=== PATIENT | male | born 1945 | race Caucasian/White ===

== ENCOUNTER 2023-02-16 10:04 | Day surgery (SDC) | payer MEDICARE, BC, SELFPAY ==
[2023-02-16] MEDS: Tropicam./Phenyleph. (1/2.5%) 5 ML BTL OS ×3 (11:08→11:25)
[2023-02-16 11:09] VITALS: BP 133/79; PULSE 75; RESP 18; TEMP 36.5; O2SAT 97
--- NOTE | 2023-02-16 11:28 | W.ANESPRE ---
General Info Date of Service Date Performed: 02/16/23 Height: 6 ft 1 in Weight: 114.1 kg Body Mass Index (BMI): 33.2 Surgical Procedure: Operation Date: 02/16/23 13:40 Proposed Procedure Side Surgeon p Cataract Extraction with IOL Implant Left Russell Bryant MD Meds Allergies and Home Medications Allergies Allergy/AdvReac Type Severity Reaction Status Date / Time canagliflozin [From Invokana] Allergy Unknown Verified 02/16/23 11:03 pioglitazone [From Actos] Allergy Unknown Verified 02/16/23 11:03 Iodine and Iodide Containing AdvReac Severe Loss of Unverified 02/16/23 11:03 Produc consciousness liraglutide [From Victoza] AdvReac Intermediate Vertigo Unverified 02/16/23 11:03 Home Medication Medication Instructions Recorded amoxicillin 500 mg capsule 2,000 mg PO PRN PRN Prior to 05/19/15 dental exams atorvastatin 80 mg tablet (Lipitor) 80 mg PO DAILY 05/19/15 diltiazem HCl 180 mg 180 mg PO DAILY 05/19/15 capsule,extended release 24 hr (Cartia XT) ibuprofen 800 mg tablet 800 mg PO PRN PRN 05/19/15 insulin aspart U-100 100 unit/mL 10 unit subcut BID 05/19/15 (3 mL) subcutaneous pen (Novolog FlexPen U-100 Insulin aspart) insulin glargine 100 unit/mL (3 15 unit subcut BID weight gain or 05/19/15 mL) subcutaneous pen (Lantus consumption Solostar U-100 Insulin) insulin glargine 100 unit/mL (3 45 unit SQ HS 05/19/15 mL) subcutaneous pen (Lantus Solostar U-100 Insulin) nitroglycerin 0.4 mg sublingual 0.4 mg sublingual PRN 05/19/15 tablet (Nitrostat) omega-3 fatty acids-fish oil 340 1 ea PO DAILY 05/19/15 mg-1,000 mg capsule (Fish Oil) saw palmetto 450 mg capsule 450 mg PO DAILY 05/19/15 thiamine HCl (vitamin B1) 100 mg 100 mg PO DAILY 05/19/15 tablet (Vitamin B-1) cholecalciferol (vitamin D3) 25 1,000 unit PO DAILY 02/13/23 mcg (1,000 unit) capsule (Vitamin D3) clopidogrel 75 mg tablet 37.5 mg PO DAILY 02/13/23 famotidine 20 mg tablet 20 mg PO HS 02/13/23 losartan 50 mg tablet 50 mg PO DAILY 02/13/23 mecobalamin (vitamin B12) 1,000 1,000 mcg sublingual DAILY 02/13/23 mcg disintegrating tablet,sublingual metformin 500 mg tablet,extended 500 mg PO BID 02/13/23 release 24 hr semaglutide 1 mg/dose (4 mg/3 mL) 1 mg subcut DIRECTED 02/13/23 subcutaneous pen injector (Ozempic) simvastatin 40 mg tablet 40 mg PO DAILY 02/13/23 [id number]-min 1 tab PO DAILY 02/13/23 3,300 unit-5 mg-200mg-75 unit tablet ER (ICaps) tadalafil 10 mg tablet mg 02/16/23 Current Visit Medications: Current Medications Generic Name Dose Route Start Last Admin Trade Name Freq PRN Reason Stop Dose Admin Acetaminophen 1,000 mg 02/16/23 06:00 Acetaminophen 500 Mg Tab PO 03/18/23 05:59 Q4H PRN PRN Balanced Salt Solution 500 ml 02/16/23 06:00 Balanced Salt Soln.-Plus 500 Ml Bag OP 03/18/23 05:59 DIRECTED RALF Miscellaneous Medication 0 ml 02/16/23 06:00 Prednisolone 1%, Moxifloxacin 0.5%, Nepafenac 0.1% 5ml Btl OS 03/18/23 05:59 DIRECTED RALF Miscellaneous Medication 0 ml 02/16/23 06:00 02/16/23 11:25 Tropicam./Phenyleph. 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 stated he had a full work up and was discharged from their care per pt. Transient cerebral ischemia Rupture of rotator cuff of shoulder right and left shoulder Proliferative diabetic retinopathy associated with diabetes mellitus due to underlying condition Morbid obesity Memory loss Surgical History Surgical History H/O arthroplasty H/O vasectomy H/O laminectomy History of total hip replacement S/P debridement wound debridement H/O hernia repair History of skin graft Hx of cystoscopy with stent placement and removal H/O vitrectomy Hx of cataract surgery removal of secondary membranous cataract w/ iridectomy Previous back surgery History of colonoscopy Tobacco Smoking/Tobacco Use Status: Never Alcohol Alcohol Intake: never Substance Use Substance use: Never Substance use type: does not use Vital Signs and Lab Results Vital Signs Most Recent Vital Signs in EMR: Most Recent Vital Signs Temp Pulse Resp BP Pulse Ox 36.5 C 75 18 133/79 97 02/16/23 11:09 02/16/23 11:09 02/16/23 11:09 02/16/23 11:09 02/16/23 11:09 Lab Results Blood Type / Crossmatch: No Data to Display Complete Blood Count: No Data to Display Complete Metabolic Panel: No Data to Display Liver Function Panel: No Data to Display Coagulation Panel: No Data to Display Cardiac Panel: No Data to Display Arterial Blood Gas: No Data to Display Venous Blood Gas: No Data to Display Pancreas Panel: No Data to Display Thyroid Panel: No Data to Display Infectious Disease: No Data to Display Blood Cultures: No Data to Display Toxicology Panel: No Data to Display Anesthesia Assessment and Plan Anesthesia History Personal History: No History of Anesthesia Complications Family History: No Family History of Anesthesia Complications Exercise Tolerance Exercise Tolerance: Metabolic Equivalents>4 Pertinent Negatives Pertinent Negatives: No Symptoms of GERD, No Major Cardiovascular Symptoms or Complaints and No Major Pulmonary Symptoms or Complaints Cardiac & Pulmonary Exam Cardiac Exam: Normal S1/S2 Heart Sounds Pulmonary Exam: Clear Bilateral Breath Sounds Implantable Cardiac Device Does patient have a Pacemaker or an ICD?: No Airway Exam Known Difficult Airway: No Mallampati Class: 1 Mouth Opening: Normal (> 3cm) Thyromental Distance: Greater than 3 cm Neck Range of Motion: Full ROM Neck Circumference: Normal Teeth Condition: Removable Dentures/Plates Upper ASA Classification ASA Score: ASA 3 Emergency Case?: No NPO Status NPO Status: NPO Clears >2 hours, Solids >8 hours Anesthesia Plan Resuscitation Status: Full Code Anesthesia Technique: MAC Anesthesia Airway Planned: Natural Airway Monitors Used: Standard Monitors
[2023-02-16 11:29] VITALS: BMI 33.2
[2023-02-16] MEDS: Balanced Salt Soln.-PLUS 500 ML BAG OP (12:27)
[2023-02-16] MEDS: Duovisc Viscoelastic System EACH 1 EACH (12:29)
[2023-02-16] MEDS: Tetracaine 0.5% 4 ML BTL OS (12:29)
[2023-02-16] MEDS: Lidocaine 1% Pres-Free 5 ML VIAL (12:30)
[2023-02-16] MEDS: Phenylephrine/Lidocaine (15/10) MG/ML 1 ML VIAL (12:32)
[2023-02-16] MEDS: Povidone-Iodine Ophth 30 ML BTL (12:33)
[2023-02-16] MEDS: Triamcinolone 40 MG/ML VIAL (12:34)
--- NOTE | 2023-02-16 12:49 | W.PM.DSUDISC ---
Date of service: 02/16/23 Time of Service: 12:49 Discharge Plan Disposition Patient Disposition: Home Discharge Details Attending Provider: Russell Bryant Primary Care Provider: Ugo Caldwell Home Meds and New Rx's Prescriptions: No Action amoxicillin 500 MG capsule 2,000 mg PO PRN PRN (Reason: Prior to dental exams) atorvastatin [Lipitor] 80 MG tablet 80 mg PO DAILY ibuprofen 800 MG tablet 800 mg PO PRN PRN diltiazem HCl [Cartia XT] 180 MG capsule,extended release 24hr 180 mg PO DAILY thiamine HCl (vitamin B1) [Vitamin B-1] 100 MG tablet 100 mg PO DAILY nitroglycerin [Nitrostat] 0.4 MG tablet, sublingual 0.4 mg Sublingual PRN insulin aspart U-100 [Novolog FlexPen U-100 Insulin] 100 UNIT/ML insulin pen 10 unit subcut BID saw palmetto 450 MG capsule 450 mg PO DAILY Fish Oil 1 EACH capsule 1 ea PO DAILY insulin glargine [Lantus Solostar U-100 Insulin] 300 UNITS/3 ML insulin pen 15 unit Sub-Q BID insulin glargine [Lantus Solostar U-100 Insulin] 100 UNIT/ML insulin pen 45 unit SQ HS simvastatin 40 mg tablet 40 mg PO DAILY clopidogrel 75 mg tablet 37.5 mg PO DAILY famotidine 20 mg tablet 20 mg PO HS ICaps [id number] vumj-kg-[id number]-unit tablet extended release 1 tab PO DAILY Ozempic 1 mg/dose (4 mg/3 mL) pen injector 1 mg SUBCUT DIRECTED Rx Instructions: 1 mg subcutaneously; metformin 500 mg tablet extended release 24 hr 500 mg PO BID losartan 50 mg tablet 50 mg PO DAILY mecobalamin (vitamin B12) 1,000 mcg tablet,disintegrating 1,000 mcg sublingual DAILY Rx Instructions: place tablet under tongue and allow to dissolve for at least30 secs before swallowing cholecalciferol (vitamin D3) [Vitamin D3] 25 mcg (1,000 unit) capsule 1,000 unit PO DAILY tadalafil 10 mg tablet Patient Comments: take 1 tablet by mouth daily (1 HOUR BEFORE SEXUAL ACTIVITY) Discharge Instructions Stand Alone Forms: Post-op Topical Cataract, Press Ganey (DSU) Discharge Orders Discharge Orders: Discharge Order (Routine); Ordered 02/16/23 Ordered By: Russell J Annette DS: Diagnosis Discharge Diagnosis (1) Cortical age-related cataract, left eye: Status: Resolved (2) Nuclear age-related cataract, left eye: Status: Resolved
[2023-02-16 12:50] VITALS: BP 127/76; PULSE 75; RESP 18; TEMP 36.5; O2SAT 96
--- NOTE | 2023-02-16 12:50 | W.PM.OP ---
Date of service: 02/16/23 Time of Service: 12:50 Operative Note Operative Note DATE OF PROCEDURE: 02/16/23 PRE-OP DIAGNOSIS: Dense nuclear/cortical cataract, left eye POST-OP DIAGNOSIS: same Severe diffuse zonular laxity, left eye PROCEDURE: Cataract extraction using phacoemulsification with intraocular lens implant, left eye SURGEON: Russell Bryant ANESTHESIA TYPE: Local By Surgeon and MAC Refer to Anesthesia Record PATHOLOGY: none sent COMPLICATIONS: None Patient was transported to: same day Patient's condition: stable Implants: Bj Clareon [id number] Indications: Progressive decreased vision due to cataract, left eye Procedure Description: CATARACT SURGERY OPERATIVE REPORT PREOPERATIVE DIAGNOSIS: Dense nuclear/cortical cataract, left eye POSTOPERATIVE DIAGNOSIS: Same, and severe diffuse zonular laxity, left eye OPERATION: Cataract extraction using phacoemulsification with posterior chamber intraocular lens implant, left eye. Implantation of capsular tension ring, left eye IOL: IOL Manufacturing Executive/Model: Bj Clareon [id number] IOL Power: + 22.0 diopters IOL Serial Number: [id number] Optic Diameter: 6.0mm Haptic/Overall Diameter: 13.0mm PHACO INFO: Bj Digidentityurion Vision System with OZil and Active Fluidics Cumulative Dispersed Energy (CDE): 28.07 seconds SURGEON: Russell Bryant MD, HARSHAD ANESTHESIA: Monitored Anesthesia Care (MAC), with local sub-tenon's anesthetic infiltration COMPLICATIONS: None SPECIMENS: None INDICATIONS FOR PROCEDURE: The patient is a 77-year-old male with history of diabetes who has previously undergone cataract surgery in the right eye, as well as pars plana vitrectomy and endolaser panretinal laser photocoagulation. He has developed a dense nuclear/cortical cataract in the left eye and desires cataract surgery and attempt to improve and maximize his vision there. See office notes for detailed information. PROCEDURE: The correct surgical eye was identified and marked as the left eye and the pupil was dilated in the preoperative area using mydriatics and cycloplegics. The dilated pupil size was 6.0 mm. The patient elected to proceed without oral sedation. The patient was brought to the operating room where cardiopulmonary monitoring was instituted and surgical time-out was performed, confirming the correct operative eye and IOL power. Topical anesthesia was administered and ophthalmic povidone-iodine 5% was instilled into the conjunctival fornices. The sebastian-ocular area was prepped with Betadine 10% solution and draped in the usual sterile fashion for intraocular surgery, including an aperture drape. A Tegaderm transparent film dressing was cut in half and used to cover the lashes and lid margins. Care was taken to sequester the lashes and lid margins under the Tegaderm dressing. A lid speculum was placed between the lids of the operative eye and the Bj LuxOR Revalia operating microscope was maneuvered into position. Flavio scissors were then used to make a conjunctival buttonhole approximately 6mm posterior to the limbus in the inferonasal quadrant. Blunt dissection was carried out to expose bare sclera, and a blunt-tipped sub-tenon?s anesthesia cannula was introduced and passed posteriorly along the globe where non-preserved plain lidocaine was injected into posterior sub-Tenon?s space. A sideport knife was used to make a paracentesis port. Intraocular phenylephrine/lidocaine was injected into the anterior chamber. The anterior chamber was then filled with viscoelastic. A keratome knife was used construct a two-plane clear corneal tunnel extending 2.0mm into clear cornea. A flap was raised on the anterior capsule and capsulorhexis forceps were used to complete a continuous curvilinear capsulorhexis of 5.0 mm. Balanced salt solution was then used to perform cortical cleaving hydrodissection and nuclear hydrodelineation until the lens could be freely rotated within the capsular bag. The lens nucleus was then disassembled and removed within the capsular bag and iris plane using phacoemulsification. The lens was noted to be quite dense. A deep central trench was sculpted in the nucleus, which was then rotated 180 degrees and the trench extended. A bimanual technique was then used to crack the nucleus into 2 halves. Each Todd nucleus was then subtyped into multiple smaller fragments under abundant dispersive viscoelastic protection. Residual cortical material was removed using the irrigation/aspiration handpiece. The posterior capsule was carefully polished to remove as much residual lens epithelial cells as safely possible. Significant generalized zonular laxity was noted as well as a very floppy capsular bag. The capsular bag was then inflated and the anterior chamber deepened with viscoelastic. A Morcher Type 15 capsular tension ring was then inserted into the capsular bag without difficulty. The lens implant described above was inserted into the capsular bag using the Bj Autonome Injector. A Kuglen hook was used to dial the IOL into position. Residual viscoelastic was then removed first from posterior to the IOL, then from the anterior chamber using the I/A handpiece. The lens implant was noted to center nicely within the capsular bag. The incisions were stromally hydrated, and the anterior chamber was reformed using BSS. Then 0.5cc of moxifloxacin 1.0mg/ml were injected into the capsular bag and anterior chamber. The incisions were checked with a Weck spear and found to be secure. At the conclusion of the procedure, triamcinolone 20 mg and 0.5 cc were injected into posterior sub-tenon's space using the sub-tenon's anesthesia injection cannula. Several drops of ophthalmic povidone-iodine 5% were then applied to the eye followed by two drops of Imprimis combination prednisolone/moxifloxacin/nepafenac solution. The drapes were removed and a clear plastic protective eye shield was placed over the eye. The patient was then returned to [facility] Day Surgery in stable condition.
--- NOTE | 2023-02-16 13:32 | W.ANESPOSTOP ---
Postoperative Evaluation Date, Time and Location Date Performed: 02/16/23 Time Performed: 13:00 Patient Location: Day Surgery Unit Vital Signs Most Recent Imported Vital Signs: Most Recent Vital Signs Temp Pulse Resp BP Pulse Ox 36.5 C 75 18 127/76 96 02/16/23 12:50 02/16/23 12:50 02/16/23 12:50 02/16/23 12:50 02/16/23 12:50 Pain Score Most Recent Pain Score: Most Recent Pain Score Pain Level 0 02/16/23 12:50 Assessment Mental Status: Awake (Alert & Oriented to Patient Baseline) Airway and Respiratory Function: Patent airway with normal (patient baseline) respiratory exam Cardiovascular Function: Hemodynamically Stable Hydration Status: Adequately Hydrated Nausea & Vomiting: No Nausea or Vomiting Pain: Pt. Denies Any Pain Peripheral Nerve Block: Patient did not receive a nerve block
== END 2023-02-16 13:17 | disposition home or self-care (01) ==
PROVIDERS: PCP Family Medicine; Visit Provider Ophthalmology
PROC: (CPT 66982; principal; 2023-02-16 13:30)
DX: H25.012 Cortical age-related cataract, left eye (principal); H25.12 Age-related nuclear cataract, left eye; I10 Essential (primary) hypertension; E11.311 Type 2 diabetes mellitus with unspecified diabetic retinopathy with macular edema
CPT/HCPCS: 66982; 00123; V2632